=== PATIENT | female | born 1990 | race Caucasian/White ===

== ENCOUNTER 2017-07-20 21:14 | Emergency (ER) | payer SELFPAY ==
[~2017-07-20] VITALS: Ht 160 cm; Wt 59.0 kg
[2017-07-20 21:15] VITALS: BP 102/72
[2017-07-20 22:07] LABS: APPEARANCE,URINE SL CLOUDY (CLEAR); BILIRUBIN,URINE NEGATIVE (NEGATIVE); BLOOD, URINE 2+ Ery/uL (NEGATIVE); COLOR,URINE YELLOW (YELLOW); KETONES,URINE NEGATIVE (NEGATIVE); LEUKOCYTE ESTERASE ,URINE 3+ (NEGATIVE); NITRITE, URINE POSITIVE (NEGATIVE); PROTEIN,URINE 3+ mg/dl (NEGATIVE); UGLUCOSE NEGATIVE (NEGATIVE)
[2017-07-20 22:22] LABS: BACTERIA,URINE Few /HPF (None Seen); WBC,URINE 81-100 /HPF (0-3)
[2017-07-20 22:23] LABS: SQUAMOUS EPITHELIAL CELL,UR Few /HPF (None Seen)
== END 2017-07-20 22:41 | disposition home or self-care (01) ==
LOC: ER 21:20
DX: N39.0 Urinary tract infection, site not specified (principal); Z88.0 Allergy status to penicillin; Z88.5 Allergy status to narcotic agent
CPT/HCPCS: 81000-TC; 84703-TC; 87086-TC; 87186-TC; A4606; Z7610